=== PATIENT | female | born 2000 | race Caucasian/White ===

== ENCOUNTER 2024-11-02 14:35 | Emergency (ER) | payer SELFPAY ==
[2024-11-02 14:37] VITALS: BP 139/83; PULSE 100; RESP 15; TEMP 36.9; O2SAT 100; BMI 21.2
--- NOTE | 2024-11-02 15:25 | EKG12_ITS ---
Test Reason : PALP Blood Pressure : */* mmHG Vent. Rate : 87 BPM Atrial Rate : 87 BPM P-R Int : 168 ms QRS Dur : 74 ms QT Int : 370 ms P-R-T Axes : 20 21 44 degrees QTcB Int : 445 ms Normal sinus rhythm Normal ECG Confirmed by DESTINY BANEGAS, BURAK ([id number]), business editor SAMANTA DUPREE ([id number]) on 11/05/2024 9:12:29 AM Referred By: ES/AR Confirmed By: BURAK DIOXN MD
--- NOTE | 2024-11-02 15:26 | EDS_ITS ---
HPI History of Present Illness Chief Complaint: Palpitations Informant: patient Narrative Narrative: Patient is a 23-year-old female with no stated past medical history who is approximate Azael weeks presenting with palpitations for the past week. She states she has had intermittent episodes where her heart feels funky. She states symptoms feel like it is pounding or going too fast. The last for couple minutes at a time. She notes sometimes during these episodes she feels fatigued and flushed, lightheaded or feels as having a hard time to breathe. She denies any cough. She is seated when she is not having his episodes she is relatively asymptomatic. For the past 2 days she has not been feeling the greatest and going to need to lay down more. She recently moved to the area from [place]. She is 11 months . She is currently nursing. Denies any complication with the delivery or . She had a vaginal delivery. She notes that about a year ago she was told there is something wrong with her blood and it was thick. She was prescribed an [id number]-kiz-ivgfudg medication but never really followed up. She tells me for the past week her bowel movements have been more frequent/daily and runny which is abnormal for her she is usually constipated. She denies any swelling of her legs. Denies history of DVT. Has a family history of a brother with an abnormal heart valve and a cousin with a hole in their heart. She does not think she is ever had any type of heart evaluation and up until the last week is never had any cardiac issues. She states that she has had intermittent headache for the past week and has been fatigued. Denies any fever, falls or injuries. Did recently have abnormally heavy menstrual cycle lasting for 12 days but that has since stopped. She states she is still been having some minor cramping. She did recently have a Depo-Provera shot. Came in for further evaluation. Denies any swelling of her legs. [facility] Medical History delivery delivered Medical History no medical history Allergy/AdvReac Type Severity Reaction Status Date / Time No Known Allergies Allergy Verified 11/02/24 14:40 Family History no significant family his Social History Smoking Status: Never smoker ROS ROS ED Constitutional Constitutional ED: Reports sweats; Denies chills or fever(s) Eyes Eyes: Denies change in vision ENT ENT ED: Denies rhinorrhea or sore throat Cardiovascular Cardiovascular: Reports palpitations; Denies chest pain Respiratory/Chest Respiratory/Chest: Reports dyspnea; Denies cough or dyspnea on exertion Gastrointestinal Gastrointestinal: Reports diarrhea and nausea; Denies abdominal pain or vomiting Musculoskeletal Musculoskeletal: Denies arthralgias or myalgias Integumentary Denies rash Neurologic Neurologic: Reports headache(s) and weakness; Denies paresthesias Hematologic/Lymphatic Hematologic/Lymphatic: Denies easy bleeding or easy bruising EXAM Physical Exam Const Vital Signs: 11/02/24 14:37 11/02/24 15:39 11/02/24 15:43 Temperature 98.4 F 98.2 F Temperature Source Oral Oral Pulse Rate 100 88 Respiratory Rate 15 20 H Respiratory Pattern Normal Blood Pressure 139/83 H 120/80 Blood Pressure Mean 101 93 Pulse Ox 100 100 Oxygen Delivery Method Room Air Room Air 11/02/24 17:00 Temperature Temperature Source Pulse Rate 87 Respiratory Rate 23 H Respiratory Pattern Blood Pressure 119/79 Blood Pressure Mean 92 Pulse Ox 100 Oxygen Delivery Method Room Air Positive well nourished and well developed General Appearance ED: well developed and NAD HEENT Reports moist mucous membranes HEENT Narrative: Normal oropharynx. Normal nares. Mildly flushed cheeks Negative for trauma Eyes PERRL General Eye ED: Negative for pale conjunctiva or scleral icterus Neck no lymphadenopathy, supple and no JVD Chest Wall inspection of chest normal and palpation of chest normal Resp normal respiratory effort and clear to auscultation bilaterally Cardio regular rate, regular rhythm and no murmurs GI normal to inspection, nondistended, normoactive bowel sounds and non-tender Auscultation: normoactive bowel sounds Palpation: soft; Negative for tender or guarding Extremity normal to inspection General Extremety ED: Negative for edema or tenderness General Extremity: Negative for edema Neuro oriented x3 Neuro Narrative: Good tone throughout. Moving all extremities easily Sensorium / Orientation: alert Motor Exam: Negative for general weakness Psych mental status grossly normal Skin no rashes or lesions noted and no wounds MDM MDM MDM Narrative Medical decision making narrative: Patient evaluated for intermittent episodes of lightheadedness and sound like pa lpitations. During these episodes she feels fatigued, flushed and her heart feels like it is pounding. She notes she has been feeling good the past few days. Did [place] and has 11-week-old at home. Differential includes is not limited to dehydration, viral illness, symptomatic anemia, infection, pulmonary emboli, thyroid abnormality, CY and electrolyte derangement. Lower suspicion for ACS. EKG shows normal sinus rhythm at rate of 87 bpm, Normal intervals, normal axis normal ST segments. EKG is not consistent with pericarditis or myocarditis I do not think she req uires trending of troponins. She does not have any cardiac risk factors and EKG does not show signs of ischemia. D-dimer is negative and low suspicion for pulmonary emboli. Patient is low risk per Wells criteria. CBC normal. BMP shows a mildly low bicarb but otherwise normal. Urinalysis largely normal and consistent with some contamination. TSH is normal. Patient has clear breath sounds, is 100% on room air and does not clinically appear fluid overloaded, is afebrile and has a normal white blood cell count. Do not think she has pneumonia clinically, pneumothorax or pulmonary edema. Do not think she requires a chest x-ray Patient is given IV fluids. Will obtain orthostatic vital signs. Given her benign workup feel that she is stable for outpatient follow-up. Will give her referral for primary care follow-up. Given return precautions. Discharged home in stable condition peer Lab Data Attestation: I reviewed the patient's lab results. Labs: Laboratory Results - last 24 hr 11/02/24 11/02/24 14:52 16:28 WBC 6.1 RBC 4.65 Hgb 12.5 Hct 37.5 MCV 80.6 L MCH 26.9 L MCHC 33.3 RDW Std Deviation 43.2 RDW Coeff of Rox 14.6 Plt Count 272 MPV 9.7 Immature Gran % (Auto) 0.300 Neut % (Auto) 58.5 Lymph % (Auto) 29.0 Parmer % (Auto) 10.0 Eos % (Auto) 1.5 Baso % (Auto) 0.7 Absolute Neuts (auto) 3.6 Absolute Lymphs (auto) 1.78 Nucleated RBC % 0 D-Dimer Quant (PE/DVT) 0.27 Sodium 140 Potassium 3.7 Chloride 109 H Carbon Dioxide 17.6 L Anion Gap 14 BUN 10 Creatinine 0.60 L Estim Creat Clear Calc 106.54 Est GFR (MDRD) Non-Af 131 BUN/Creatinine Ratio 16.2 Glucose 87 Calcium 8.8 Total Bilirubin 0.38 AST 16 ALT 8 Alkaline Phosphatase 94 Total Protein 7.0 Albumin 4.5 Globulin 2.5 Albumin/Globulin Ratio 1.8 TSH 1.310 Urine Color Straw Urine Clarity Clear Urine pH 6.0 Ur Specific [place] 1.015 Urine Protein 15 H Urine Glucose (UA) Normal Urine Ketones Negative Urine Occult Blood Negative Urine Nitrite Negative Urine Bilirubin Negative Urine Urobilinogen Normal Ur Leukocyte Esterase 100 H Urine RBC 0-5 SEEN Urine WBC 5-10 SEEN Ur Squamous Epith Cells 5-10 SEEN Urine Bacteria 0 SEEN Urine Mucus 0 SEEN Urine Test Negative Discharge Plan Triage Chief Complaint: Palpitations ED Provider: aGby Beck Dx/Rx/DC Orders Clinical Impression: Heart palpitations, Malaise and fatigue Instructions: ED Heart Palpitations, ED Weakness Uncertain Cause Primary Care Provider: Care Physician,No Primary Referrals: Care Physician,No Primary [Primary Care Provider] - Aakash Conte, [employer]ACH[employer] [facility] - Activity Restrictions/Additional Instructions: Your workup today was largely normal and reassuring. Please follow-up with a primary care doctor for further evaluation especially of your symptoms persist. Make sure you are drinking plenty of fluids and eating regular meals throughout the day. Return if you have progression or worsening of your symptoms. Print Language: Malay Disposition Disposition: Home, Self Care
[2024-11-02] MEDS: 0.9% Normal Saline (1000mL) 1,000 ML 1000 ML IV (15:36)
[2024-11-02 15:43] VITALS: BP 120/80; PULSE 88; RESP 20; TEMP 36.8; O2SAT 100
[2024-11-02 16:00] LABS: Hematocrit 37.5 % (37-47); Hemoglobin 12.5 g/dL (12.0-15.0); Immature Granulocytes Count 0.020 X10^3/uL (0.0-0.0); Mean Corp Hgb Conc 33.3 g/dL (32-36); Mean Corpuscular Volume 80.6 fL (81-99); Mean Platelet Vol. 9.7 fl (6.2-12.0); NRBC Flagged by Analyzer 0 % (0-5); Platelet Count 272 K/mm3 (150-450); RBC Distribution Width CV 14.6 % (11.6-14.6); RBC Distribution Width SD 43.2 fl (35.1-43.9); Red Blood Count 4.65 M/mm3 (4.2-5.4); White Blood Count 6.1 K/mm3 (4.4-11.0)
[2024-11-02 16:19] LABS: D-Dimer Quantitative (DVT/PE) 0.27 FEU/ug/m (0.27-0.49)
[2024-11-02 16:32] LABS: Mucous, Urine 0 SEEN /hpf (<or=2+)
[2024-11-02 16:41] LABS: AST(SGOT) 16 U/L (<=31); Alanine Aminotransfer ALT/SGPT 8 U/L (<=34); Albumin, Serum 4.5 g/dL (3.5-5.0); Alkaline Phosphatase 94 U/L (35-104); Anion Gap 14 (5-15); BUN 10 mg/dL (4-19); BUN/Creat Ratio 16.2 RATIO (10-20); Calcium,Total 8.8 mg/dL (7.6-11.0); Carbon Dioxide 17.6 mmol/L (21.0-32.0); Chloride 109 mmol/L (98-108); Estimated Creatinine Clearance 106.54 ml/min (50-250); Globulin 2.5 g/dL (2.2-4.2); Glucose 87 mg/dL (70-99); Potassium 3.7 mmol/L (3.3-5.1)
[2024-11-02 16:53] LABS: Internal QC Validated? YES +Cl - CLEAR BKGD; Pregnancy, Urine Negative Negative; Record Kit Lot#,Urine Preg 947241
[2024-11-02 17:00] VITALS: BP 119/79; PULSE 87; RESP 23; O2SAT 100
[2024-11-02 17:10] LABS: Color, Urine Straw (Yellow); Glucose, Dipstick Normal (Normal); Ketone-Dipstick Negative (Negative); Leukocyte Esterase-Dipstick 100 /ul (Negative); Nitrite-Dipstick Negative (Negative); Occult Blood-Urine Negative /ul (Negative); Protein-Dipstick 15 mg/dl (Negative); Specific Gravity, Urine 1.015 (1.002-1.030); Urine Bilirubin Dipstick Negative (Negative)
[2024-11-02 17:29] LABS: Red Blood Cells-Urine 0-5 SEEN /hpf (0-5); Squamous Epithelial Cells - UA 5-10 SEEN /hpf (5-10)
[2024-11-02 19:10] VITALS: BP 117/72; BP 130/85; BP 131/74; PULSE 70; PULSE 73; PULSE 77; RESP 19; O2SAT 99
[2024-11-02 19:39] VITALS: BP 115/88; PULSE 83; RESP 14; TEMP 36.8; O2SAT 100
== END 2024-11-02 19:43 | disposition home or self-care (01) ==
PROVIDERS: Emergency Provider Emergency Medicine; Visit Provider Emergency Medicine
DX: R00.2 Palpitations (principal); R53.81 Other malaise; R06.00 Dyspnea, unspecified; R51.9 Headache, unspecified
CPT/HCPCS: 80053; 81001; 81025; 84443; 85025; 85379; 93005; 96360; 96361; 99285; A4216